=== PATIENT | female | born 1930 | race Caucasian/White ===

== ENCOUNTER 2018-07-22 08:27 | Observation (INO) | payer MEDICARE, OTHER ==
[~2018-07-22] VITALS: Ht 157.5 cm; Wt 51.4 kg
[2018-07-22] VITALS (8 sets, daily range): BP systolic 106–126; BP diastolic 41–58; Ht 157.5 cm; Wt 51.4 kg
--- NOTE | ~2018-07-22 | HEMODYNAMI ---
PATIENT:JOCELYNN FLOOD MEDICAL RECORD: [id number] : 34 [id number] ADMISSION DATE: 07/22/18 Generatedon:07/23/201810:22 Patient name: JOCELYNN FLOOD Patient #: [id number] SSN: : 1930 Date of study: 07/23/2018 Page: Of Hemodynamic Procedure Report Patient Data Patient Demographics Procedure consent was obtained First Name: JOCELYNN Gender: Female Last Name: ALEENA : 1930 Patient #: [id number] Age: 88 year(s) Race: Unknown Additional ID: [id number] Contact details [address]: [address] [place] [address] rd State: [place] City: [place] Zip code: [address] Admission Admission Data Admission Date: 07/22/2018 Admission Time: 10:38 Room #: D.2123 Lab Results Lab Result Date: 07/23/2018 Lab Result Time: 0:00 Biochemistry Name Units Result Min Max BUN mg/dl 17 --(---*)-- 7 18 Creatinine mg/dl 1 --(--*-)-- 0.6 1.3 CBC Name Units Result Min Max Hemoglobin g/dl 12.3 *-(----)-- 13.5 17.5 Procedure Procedure Types Cath Procedure Diagnostic Procedure LHC LHC w/Coronaries Procedure Description Procedure Date Procedure Date: 07/23/2018 Procedure Start Time: 10:13 Procedure End Time: 10:21 Procedure Staff Name Function Kenny Payan MD Performing Physician Mani Salazar RT Monitor Angelina Pina RT Scrub Edith Ventura RN Nurse Jacqueline Wilcox RN Nurse Procedure Data Cath Procedure Fluoroscopy Diagnostic fluoroscopy Total fluoroscopy Time: 1 time: 1 min min Diagnostic fluoroscopy Total fluoroscopy dose: 105 dose: 105 mGy mGy Contrast Material Contrast Material Type Amount (ml) Isovue 300 47 Entry Location Entry Primary Successful Side Size Upsize Upsize Entry Closure Succes sful Closure Location (Fr) 1 (Fr) 2 (Fr) Remarks Device Remarks Femoral Right 5 Fr Exoseal artery Estimated blood loss: 10 ml Diagnostic catheters Device Type Used For End Catheter Placement MULTIPACK JL 4.0 5Fr Procedure catheter MULTIPACK 3DRC 5Fr Procedure catheter MULTIPACK Pigtail 5 Fr Procedure catheter Procedure Complications No complications Procedure Medications Medication Administration Route Dosage Oxygen etCO2 Nasal cannula 2 l/min Lidocaine 2% added to field 20 Heparin Flush Bag added to field 2 bags (1000units/500ml NS) 0.9% NaCl I.V. 100 ml/hr Versed I.V. 2 mg Fentanyl I.V. 50 mcg Hemodynamics Rest HGB: 12.3 (g/dl) Heart Rate: 68 (bpm) Pressure Samples Time Site Value (mmHg) Purpose Heart Use Rate(bpm) 10:15 AO 107/48(72) Snapshot 66 10:18 LV 120/6,10 Snapshot 72 Gradients Valve Time Site Site Mean SEP/DFP Peak To Heart Use 1 2 (mmHg) (sec/min) Peak Rate (mmHg) (bpm) Aortic 10:18 LV AO 80 Snapshots Pre Cath Intra NCS Post Cath Vital Signs Time Heart Resp SPO2 etCO2 NIBP (mmHg) Rhythm Pain Sedation Rate (ipm) (%) (mmHg) Status Level (bpm) 10:05:01 69 19 99 32.3 152/69(119) NSR 0 (11) 10(A) , No pain 10:09:19 70 19 100 33 140/69(112) NSR 0 (11) 10(A) , No pain 10:13:36 66 18 99 39.1 123/61(94) NSR 0 (11) 10(A) , No pain 10:17:47 74 18 99 37.6 122/54(92) NSR 0 (11) 10(A) , No pain Medications Time Medication Route Dose Verified Delivered Reason Notes Eff ectiveness by by 10:01:45 Oxygen etCO2 2 Kenny Sharma used for Nasal l/min [facility] Jeo Ventura brewing director cannula 10:01:52 Lidocaine 2% added 20ml Kenny Cox for local to vial [facility] anesthetic field MD GILBERT 10:02:03 Heparin Flush added 2 Kenny Cox used for Bag to bags Schuyler Schuyler procedure (1000units/500ml field MD GILBERT NS) 10:02:13 0.9% NaCl I.V. 100 Kenny Sharma Per ml/hr [facility] Joe Ventura RN physician 10:10:46 Versed I.V. [address] Joe Wilcox sedation RN 10:10:53 Fentanyl I.V. 50 Kenny Phillips for [facility] [place] [facility] Joe Wilcox sedation sludge control attendant Log Time Note 9:45:01 Edith Ventura RN sent for patient. Start room use. 9:49:04 Diagnostic Cath Status : Elective 9:52:02 Time tracking: Regular hours (M-F 7:00 - 5:00) 9:52:16 Plan of Care:Hemodynamics will remain stable., Cardiac rhythm will remain stable., Comfort level will be maintained., Respiratory function will remain adequate., Patient/ family verbilizes understanding of procedure., Procedure tolerated without complication., Recovers from procedure without complications.. 9:54:13 Lab Result : Hemoglobin 12.3 g/dl 9:54:13 Lab Result : Creatinine 1 mg/dl 9:54:13 Lab Result : BUN 17 mg/dl 9:54:36 Patient received from Med II to [facility] 1 Alert and oriented. Tansferred to table in Supine position. 9:56:21 Warm blankets applied, and tima hugger turned on for patient comfort. 9:56:21 Correct patient and procedure confirmed by team. 9:56:22 Signed procedure consent form obtained from patient. 9:56:23 ECG and BP/O2 sat monitors applied to patient. 10:01:45 Oxygen 2 l/min etCO2 Nasal cannula was administered by Edith Ventura RN; used for procedure; 10:01:52 Lidocaine 2% 20ml vial added to field was administered by Kenny Payan MD; for local anesthetic; 10:02:03 Heparin Flush Bag (1000units/500ml NS) 2 bags added to field was administered by Kenny Payan MD; used for procedure; 10:02:13 0.9% NaCl 100 ml/hr I.V. was administered by Edith Ventura RN; Per physician; 10:03:47 Vital chart was started 10:05:18 Baseline sample Acquired. 10:05:23 Rhythm: sinus rhythm 10:05:26 Full Disclosure recording started 10:05:30 H&P Date Dictated: 07/23/2018 Within 30 days and on chart.. 10:05:30 Pre-procedure instructions explained to patient. 10:05:30 Pre-op teaching completed and patient verbalized understanding. 10:05:38 Family in patients room. 10:05:39 Patient NPO since Midnight. 10:05:41 Is the patient allergic to Iodine/contrast media? No. 10:05:43 Is patient on blood thinner?Yes 10:05:45 ACC The patient was administered the following blood thiners within the last 24 hours: ACCPlavix 10:05:50 Patient diabetic? No. 10:05:53 Previous problem with sedation/anesthesia? No ? 10:05:54 Snore? No 10:05:55 Sleep apnea? No 10:05:56 Deviated septum? No 10:05:57 Opens mouth fully? Yes 10:05:58 Sticks out tongue? Yes 10:06:00 Airway obstruction? No ? 10:06:01 Dentures? No ? 10:06:04 Pre procedure: right dorsailis pedis pulse 1+ Palpable, but thready & weak; easily obliterated 10:06:13 Radial too small. 10:06:17 Patient pain scale 0/10 ?. 10:06:26 IV patent on arrival in left forearm with 0.9% NaCl at [facility]. 10:06:28 Lab results completed and on chart. 10:06:33 Right groin area was prepped with chlora-prep and draped in sterile fashion 10:06:39 Alarms reviewed by R. N. 10:06:39 Sharps counted by scrub and verified by R.N. 10:06:45 Use device set Femoral Dx 10:06:48 Tegaderm 4 x 4 (1626W) opened to sterile field. 10:06:49 ACIST Manifold (48475) opened to sterile field. 10:06:50 ACIST Hand Control (73180) opened to sterile field. 10:06:51 ACIST Syringe (15276) opened to sterile field. 10:06:51 Bag Decanter (2002S) opened to sterile field. 10:06:52 Medline Cath Pack ([id number]) opened to sterile field. 10:06:52 DIAGNOSTIC WIRE .035 260cm J wire (782394) opened to sterile field. 10:06:54 DIAGNOSTIC Multipack 5Fr catheter set (AY9954) opened to sterile field. 10:06:55 SHEATH Prelude 5Fr 0.035 (WEH-9O-57-035) opened to sterile field. 10:07:05 --------ALL STOP TIME OUT------ 10:07:05 Final Timeout: patient, procedure, and site verified with staff and physician. All members of the team are in agreement. 10:07:08 Right groin site verified by team. 10:07:11 Physical assessment completed. ASA score P 2 - A patient with mild systemic disease as per Kenny Payan MD. 10:07:14 Sedation plan: IV Moderate Sedation Medication:Versed, Fentanyl 10:10:46 Versed 2 mg I.V. was administered by Jacqueline Wilcox RN; for sedation; 10:10:53 Fentanyl 50 mcg I.V. was administered by Jacqueline Wilcox RN; for sedation; 10:13:33 Procedure started. 10:13:37 Local anesthetic to right femoral artery with Lidocaine 2% by Kenny Payan MD.INITIAL ACCESS ONLY 10:13:39 Zero performed for pressure channel P1 10:14:23 A 5 Fr sheath was inserted into the Right Femoral artery 10:14:37 A MULTIPACK JL 4.0 5Fr catheter was advanced over the wire and used for Procedure. 10:15:37 LCA angiography performed. 10:16:09 Catheter removed. 10:16:17 A MULTIPACK 3DRC 5Fr catheter was advanced over the wire and used for Procedure. 10:16:45 RCA angiography performed. 10:16:47 Catheter removed. 10:16:51 A MULTIPACK Pigtail 5 Fr catheter was advanced over the wire and used for Procedure. 10:18:11 LV angiography performed. 10:18:19 LV gram done using VITALE 10:18:24 EF : 55 % 10:18:26 LV hemodynamics recorded. 10:18:29 Injector settings: Ml/sec: 7, Volume: 15, 10:18:32 Catheter removed. 10:18:33 EXOSEAL 5Fr (EX500) opened to sterile field. 10:18:50 Sheath removed intact; hemostasis achieved with Exoseal to the Right Femoral artery. 10:18:52 Procedure ended.(Physican Out) 10:19:33 Fluoroscopy time 01.00 minutes. 10:19:38 Fluoroscopy dose: 105 mGy 10:19:38 Flurop Dose total: 105 10:19:42 Contrast amount:Isovue 300 47ml. 10:19:45 Sharps counted by scrub and verified by R.N. 10:19:46 Insertion/operative site no bleeding no hematoma. 10:19:52 Post-op/insertion site Right Femoral artery dressed using a 4 x 4 and Tegaderm. 10:19:53 Post Procedure Pulses reassessed and unchanged 10:19:56 Post-procedure physical assessment completed. ASA score P 2 - A patient with mild systemic disease as per Kenny Payan MD. 10:19:58 Post procedure rhythm: unchanged. 10:20:01 Estimated blood loss: 10 ml 10:20:02 Post procedure instruction explained to patient.Patient verbalizes understanding. 10:20:03 Patient needs reinforcement of post procedure teaching. 10:20:22 Procedure and supply charges have been captured, reviewed, submitted and are correct. 10:20:47 Procedure Complication : No complications 10:20:50 Vital chart was stopped 10:20:51 See physician's report for complete and final results. 10:20:57 Report given to PCU. 10:20:59 Patient transfered to PCU with Bed. 10:21:01 Procedure ended. 10:21:01 Full Disclosure recording stopped 10:21:10 End room use (Document Last) Device Usage Item Name Manufacture Quantity Catalog Number Hospital Part Current M inimal Lot# / Charge Number Stock Stock Serial# Code Tegaderm 4 x 4 3M 1 [id number] 5 (1626W) ACIST Manifold Acist 1 97021 903238 919847 305217 5 (40730) [employer] ACIST Hand Acist 1 63620 251199 289729 232845 5 Control (25659) [employer] ACIST Syringe Acist 1 17411 712578 473358 819373 2 0 (04349) [employer] Bag Decanter Microtek 1 2001S 125047 53918 845303 5 () Medical Inc. Medline Cath Cardinal 1 [id number] 181744 18165 700467 5 [facility] Perfect Storm Media ([id number]) DIAGNOSTIC WIRE [facility] Jose Manuel 1 710523 433828 730545 929597 3 0 .035 260cm J wire (386626) DIAGNOSTIC Cardinal 1 [id number] 118341 47736 989968 3 0 Multipack 5Fr Health catheter set (GL2891) SHEATH Prelude Merit 1 [id number]-[id number] 084561 791248 279741 5 5Fr 0.035 Medical ([id number]-9Z-43-035) MULTIPACK JL Cardinal 1 [id number] 5 4.0 5Fr Health catheter MULTIPACK 3DRC Cardinal 1 407584 5 5Fr catheter Health MULTIPACK Cardinal 1 207628 5 Pigtail 5 Fr Health catheter EXOSEAL 5Fr Cardinal 1 EX500 490215 555103 807240 1 0 (EX500) Health Signature Audit [place] Stage Time Signature Unsigned Intra-Procedure 07/23/2018 Mani Salazar 10:22:55 AM RT(R) Signatures Monitor : Mani Salazar RT Signature : Date : Time : [id number] [place] [address]
--- NOTE | ~2018-07-22 | DS ---
PATIENT:JOCELYNN FLOOD :34 MEDICAL RECORD: [id number] DISCHARGE SUMMARY ADMISSION DATE: 07/22/18 DISCHARGE DATE: 07/23/18 DATE OF ADMISSION: 07/22/2018 DATE OF DISCHARGE: 07/23/2018 PROBLEM LIST: 1. Chest pain. 2. Hypertension. HISTORY AND HOSPITAL COURSE: The patient was admitted with symptoms of acute coronary syndrome and underwent angiography. No obstructive coronary disease. Discharged home in good condition. ACTIVITY: As tolerated. DIET: AHA diet. TRANSINT:[id number] Voice Confirmation ID: [id number] DOCUMENT ID: [id number] ÁLVARO FLYNN MD at 0829 CC: [id number] DICTATION DATE: 07/23/18 1023 TREATER HELPER: 07/23/181922 DIS IN 07/23/18 [facility] [address] [place] [address]
--- NOTE | ~2018-07-22 | OP ---
PATIENT NAME: JOCELYNN FLOOD MEDICAL RECORD: [id number] :34 LOCATION:D.M2 D.2123 ADMISSION DATE:07/22/18 SURGEON: ÁLVARO FLYNN MD DATE OF OPERATION: 07/23/2018 PROCEDURE: Left heart catheterization, selective coronary angiography, right femoral artery approach. CATHETERS: A 5-Yoruba sheath, 5/4 left and right Anders, 5/4 pig. The procedure was well tolerated. The patient was returned to harris, sheath removed. ExoSeal device placed. FINDINGS: Left ventriculography in 30-degree VITALE view: Normal wall motion and normal systolic function. CORONARY ANATOMY: LEFT MAIN: Left main is free of disease. LAD: Free of disease in the diagonal system. CIRCUMFLEX: Free of disease in the marginal system. RIGHT CORONARY ARTERY: Dominant artery, gives rise to PDA, free of disease. IMPRESSION: Normal LV systolic function, normal coronary anatomy. TRANSINT:[id number] Voice Confirmation ID: [id number] DOCUMENT ID: [id number] ÁLVARO FLYNN MD at 0829 CC: [id number] DICTATION DATE: 07/23/18 1022 CUT OFF MACHINE UNLOADER: 07/23/18 1135 DIS IN 07/23/18 [facility] [address] [place] [address]
--- NOTE | ~2018-07-22 | HP ---
PATIENT: JOCELYNN FLOOD MEDICAL RECORD: [id number] ACCOUNT: [id number] LOCATION:[address] : 32 ADMISSION DATE: 07/22/18 PCP: BRENDA DELEON MD HISTORY AND PHYSICAL EXAMINATION HISTORY OF PRESENT ILLNESS: An 88-year-old female with a known history of coronary artery disease, has a history of hypertension, really no other past medical history and is having increased dyspnea more when walking her dogs as of late. She this morning had rest symptomology of some heaviness and tightness suspicious for angina, acute coronary syndrome. We are asked to see her concerning her cardiovascular status. PAST MEDICAL HISTORY: Includes, 1. History of anxiety. 2. Hypertension. MEDICATIONS: Include acebutolol 200 mg p.o. daily, amlodipine 2.5 mg p.o. every day, aspirin 81 every day, Lexapro 20 every day. ALLERGIES: None known. SOCIAL HISTORY: She is nonsmoker, nondrinker, lives by herself, does exercise on a frequent basis. REVIEW OF SYSTEMS: The patient reports easy bruising but reports no swollen glands. The patient reports no fever, no night sweats, no significant weight gain, no significant weight loss. No significant exercise tolerance. The patient reports no dry eyes, no irritation, no vision change. Patient reports no difficulty hearing and no ear pain. Patient reports no frequent nose bleeds or nose and sinus problems. Patient reports on arm pain on exertion. No shortness of breath while lying down. No history of heart murmur. Patient reports no cough, no wheezing or coughing up blood. Patient reports no abdominal pain, no vomiting. Normal appetite. No diarrhea and not vomiting blood. No nausea and no constipation. Patient reports no incontinence. No difficulty urinating. No hematuria. No increased frequency. Patient reports no muscle aches. No weakness, no arthralgias, no back pain. No swelling of the extremities. Patient reports no abnormal mole, no jaundice, no rashes. Reports no loss of consciousness. No weakness and no numbness. No seizures, dizziness, or headaches. The patient reports no depression, no sleep disturbance, feeling safe in a relationship and no alcohol abuse. Patient reports on fatigue. Reports no runny nose or sinus pressure. No itching, no hives, and no frequent sneezing. PHYSICAL EXAMINATION: GENERAL: A pleasant female in no acute distress. VITAL SIGNS: 106/52, pulse 66 and regular. HEENT: Normocephalic, atraumatic. NECK: No JVD or bruit. HEART: Regular, II/ systolic ejection murmur. LUNGS: Good air excursion. ABDOMEN: Soft, nontender. EXTREMITIES: Pulse is excellent, 2+ with no edema. NEUROLOGIC: Grossly intact. DIAGNOSTIC DATA: ECG without acute change. HISTORY AND PHYSICAL [id number] JOCELYNN FLOOD IMPRESSION: Acute coronary syndrome, progressive angina. PLAN: Diagnostic angiography, intervention based on above. TRANSINT:[id number] Voice Confirmation ID: [id number] DOCUMENT ID: [id number] ÁLVARO FLYNN MD at 1023 CC: [id number] DICTATION DATE: 07/22/181652 ANIMATION ARTIST: 07/22/18 2256 ADM IN [facility] [address] [place] [address]
[2018-07-22] MEDS ORDERED: ACEBUTOLOL HCL200 MG PO (08:31)
[2018-07-22] MEDS ORDERED: NORVASC2.5 MG PO (08:31)
[2018-07-22] MEDS ORDERED: BAYER CHEWABLE81 MG PO (08:32)
[2018-07-22 08:56] LABS: APPEARANCE CLEAR (CLEAR); BILIRUBIN NEGATIVE (NEGATIVE); COLOR YELLOW (YELLOW); GLUCOSE NEGATIVE (NEGATIVE); KETONE NEGATIVE (NEGATIVE); NITRITE NEGATIVE (NEGATIVE); PROTEIN NEGATIVE (NEGATIVE); SPECIFIC GRAVITY 1.005 (1.005-1.020); UROBILINOGEN NORMAL (NORMAL)
[2018-07-22 09:01] LABS: BASOPHILS 1.1 % (0-2); HEMATOCRIT 35.2 % (36.0-48.0); HEMOGLOBIN 12.3 g/dL (12-16); IMMATURE GRANULOCYTES 0.2 % (0-5); LYMPHOCYTES 23.1 % (15-50); MCH 30.6 pg (26.0-34.0); MCHC 34.9 g/dL (31.0-37.0); MCV 87.6 fL (80.0-100.0); MEAN PLATELET VOLUME 9.5 fL (7.4-10.4); MONOCYTES 12.9 % (2-11); NEUTROPHILS 57.7 % (40-80); PLATELET COUNT 282 10x3/uL (130-400); RBC 4.02 10x6/uL (4.00-5.40); RDW 12.6 % (11.5-14.5); WBC 4.6 10x3/uL (4.8-10.8)
[2018-07-22 09:14] LABS: ALBUMIN 3.4 g/dL (3.4-5.0); ALKALINE PHOSPHATASE 58 U/L (46-116); ALT (SGPT) 19 U/L (10-68); BILIRUBIN - TOTAL 0.43 mg/dL (0.2-1.3); CALC OSMOLALITY 276 mosm/kg (275-300); CHLORIDE - SERUM 100 mmol/L (98-107); GLUCOSE 151 mg/dL (74-106); POTASSIUM - SERUM 4.2 mmol/L (3.5-5.1); PROTEIN - SERUM 6.9 g/dL (6.4-8.2); SODIUM 136 mmol/L (136-145); UREA NITROGEN 17 mg/dL (7-18); eGFR NON AFRICAN AMERICAN 56 mL/min (90-120)
[2018-07-22 09:23] LABS: CREATINE KINASE 47 UL (21-215)
[2018-07-22 09:44] LABS: CKMB 1.8 U/L (0.0-3.6)
[2018-07-22 09:46] LABS: TROPONIN-I < 0.017 ng/mL (0.000-0.060)
[2018-07-22] MEDS ORDERED: LEXAPRO20 MG PO (12:50)
[2018-07-22 13:30] LABS: CKMB 1.4 U/L (0.0-3.6); CREATINE KINASE 42 UL (21-215)
[2018-07-22 13:34] LABS: TROPONIN-I < 0.017 ng/mL (0.000-0.060)
[2018-07-22 18:48] LABS: CKMB 1.6 U/L (0.0-3.6); CREATINE KINASE 48 UL (21-215); TROPONIN-I < 0.017 ng/mL (0.000-0.060)
[2018-07-23 00:30] VITALS: BP 120/55
[2018-07-23 04:30] VITALS: BP 105/57
[2018-07-23 08:37] VITALS: BP 120/56
== END 2018-07-23 15:29 | disposition home or self-care (01) ==
LOC: D.ER 08:27 → OBSVTIME 10:38 → D.EDHOLD 10:38 → D.M2 11:37
PROVIDERS: Emergency Medicine
DX: R07.9 Chest pain, unspecified (principal); I10 Essential (primary) hypertension